=== PATIENT | male | born 1980 | race Caucasian/White ===

== ENCOUNTER 2016-10-21 00:42 | Emergency (ER) | payer SELFPAY ==
--- NOTE | 2016-10-21 20:16 | ER ---
ADMIT: 10/21/2016 RM/LOC: ER [facility] MR#: [id number] [facility] [id number] [place], [place] [id number] [address] [address] Emergency Room Report SEX: M AGE: 36 : 1980 DATE: 10/21/2016 The patient is a 36-year-old male complaining of right testicle to flank pain for the past week. 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 Denies any STD or history of epididymitis. Exam remarkable for nontoxic, afebrile, acutely uncomfortable male with right flank pain extending to testicle, strong cremasteric bilaterally. Slightly tender epididymis and right testicle. No evidence of hernia. CT abdomen and pelvis shows no evidence of ureterolithiasis. UA shows 27 WBCs, 2+ leukocyte esterase. Otherwise, unremarkable. CRP 1.56, lipase 178. WBC 11.7, normal chemistries. The patient was given 2 g Rocephin for chronic prostatitis covered with Cipro 500 mg b.i.d. x15 days, hydrocodone 5/325 #30 plus 6 from Pyxis, IV fluid bolus, Zofran, Toradol, Dilaudid with relief of pain. Strongly encourage scrotal elevation, rest, ice, and follow up Dr. Chauhan in 2 weeks. Andre Gomez MD/ lizzy JOB #: [id number] CC: Andre Gomez MD, Attending Physician Adal Chauhan MD, Family Physician Adal Chauhan MD
== END 2016-10-21 03:15 | disposition home or self-care (01) ==
LOC: ER 00:42
DX: N45.3 Epididymo-orchitis (principal); N41.1 Chronic prostatitis